=== PATIENT | female | born 1955 | race Caucasian/White ===

== ENCOUNTER 2017-01-20 06:53 | Emergency (ER) | payer MEDICAID ==
[~2017-01-20] VITALS: Ht 154.9 cm; Wt 49.6 kg
[2017-01-20] MEDS ORDERED: FLUORESCEIN OPHTHALMIC 1 MG STRIP ONE (07:14)
[2017-01-20] MEDS ORDERED: PROPARACAINE OPHTH 0.5%, 15ML ONE (07:14)
[2017-01-20 08:28] VITALS: BP 160/65
== END 2017-01-20 08:37 | disposition home or self-care (01) ==
LOC: ED 08:28
DX: H18.821 Corneal disorder due to contact lens, right eye (principal)
CPT/HCPCS: 99283